=== PATIENT | male | born 1965 | race Caucasian/White ===

== ENCOUNTER 2019-07-03 08:00 | Day surgery (SDC) | payer OTHER, SELFPAY ==
[2019-07-02 11:13] VITALS: BMI 33.0
[2019-07-03 06:38] VITALS: BP 134/97; PULSE 75; RESP 18; TEMP 36; O2SAT 97; BMI 32.5
[2019-07-03] MEDS: LACTATED RINGERS 1,000 ML 150 ML IV CONT (07:00)
--- NOTE | 2019-07-03 07:10 | WPDANESEPPF ---
Anes - Initial Pre Proc Eval Procedure: Operation Date: 07/03/19 08:00 Proposed Procedures p Esophagogastroduodenoscopy - Tc Christianson MD Date/Time: 07/03/19 07:10 Surgeon: Tc Christianson MD Pre Op Diagnosis: dysphagia Patient Data Age: 53 Gender: M Height: 1.91 m Weight: 118 kg Last Vital Signs Temp 36.0 C L 07/03/19 06:38 Pulse 75 07/03/19 06:38 Resp 18 07/03/19 06:38 BP 134/97 H 07/03/19 06:38 Pulse Ox 97 07/03/19 06:38 Allergies Allergy/AdvReac Type Severity Reaction Status Date / Time No Known Allergies Allergy Verified 07/03/19 06:37 Home Medications Medication Instructions Recorded Confirmed Type Multiple Vitamins 1 tab-cap PO DAILY 07/02/19 07/03/19 History bupropion HCl (smoking deter) 150 mg PO EVERY OTHER DAY 07/02/19 07/03/19 History pantoprazole 40 mg PO DAILY 07/02/19 07/03/19 History Patient hx anesthesia problems: none Family hx anesthesia problems: none PMFSH Past Medical History Medical History (Updated 07/03/19 @ 07:11 by Jonh Thompson MD) Chronic GERD Obesity Social History Social History Gender identity (if verbalized by the patient): Male Anes - Eval Final PreProcedure Day of Procedure 07/03/19 07:10 Patient weight: obese Heart: regular rate and rhythm Lungs: clear to auscultation and normal air movement Airway: Mallampati scale Neurological: alert and oriented Last oral intake: >/= 8 hours ASA classification: III Emergent: no Anesthetic plan: proceed Anesthesia type and monitoring: general GIVS Informed Consent: The patient's anesthetic plan and its attendant risks and benefits were discussed with the patient/family/POA. Questions were solicited and answers provided to the satisfaction of the patient/family/POA.
--- NOTE | 2019-07-03 08:10 | P.HP_ITS ---
History of Present Illness History of Present Illness Consent: Risks, benefits, and alternatives have been discussed and questions answered. Patient agrees to proceed with procedure. Chief complaint: dysphagia Narrative: Chidi Mccloud is a 53 year old W male referred for semi emergent gastroscopy for evaluation of increasing solid food dysphagia. Patient with increased heartburn and indigestion. Denies any weight loss. no nausea vomiting or hematemesis. Patient states he had a gastroscopy by another examiner in 2012 and has been on anti reflux medicine since this time. He takes Protonix 40 mg daily symptoms are increasing despite this. Patient is a chronic smoker he did stop just recently. He is concerned about underlying malignancy since the symptoms have not been improving. Patient did have a CT scan of his abdomen which revealed a small hiatal hernia and wall thickening about the GE junction. [facility] Past Medical History Medical History Chronic GERD Obesity Social History Social History Gender identity (if verbalized by the patient): Male Meds Home Medications and Allergies Home Medications Medication Instructions Recorded Confirmed Type Multiple Vitamins 1 tab-cap PO DAILY 07/02/19 07/03/19 History bupropion HCl (smoking deter) 150 mg PO EVERY OTHER DAY 07/02/19 07/03/19 History pantoprazole 40 mg PO DAILY 07/02/19 07/03/19 History Allergies Allergy/AdvReac Type Severity Reaction Status Date / Time No Known Allergies Allergy Verified 07/03/19 06:37 Vital Signs Vital Signs - 24 hr 07/03/19 06:38 Temperature 36.0 C L Pulse Rate 75 Respiratory Rate 18 Blood Pressure 134/97 H Pulse Oximetry 97 Exam Const: Orientation/consciousness: patient oriented x3 Resp: Auscultation: clear to auscultation bilaterally Cardio: Rate: regular rate Rhythm: regular rhythm Heart sounds: no murmurs GI: GI Palp: Yes Soft to palpation, No Tenderness to palpation present (GI), Yes No hepatosplenomegaly present and No Palpable mass present Auscultation: normal bowel sounds Neuro: General: patient oriented x3 and no focal motor deficits Extrem: General: no pedal edema Assessment and Plan Additional Plan Gastroscopy for evaluation of increasing heartburn despite Protonix therapy and abnormal CT scan which revealed thickening of the GE junction.
[2019-07-03 08:38] VITALS: BP 119/82; PULSE 90; RESP 18; O2SAT 99
[2019-07-03 08:48] VITALS: BP 113/90; PULSE 83; RESP 26; O2SAT 99
[2019-07-03 08:58] VITALS: BP 130/98; PULSE 84; RESP 26; O2SAT 99
== END 2019-07-03 09:09 ==
PROVIDERS: PCP Internal Medicine; Visit Provider Internal Medicine Gastroenterology
PROC: 0DJ08ZZ Inspection of Upper Intestinal Tract, Via Natural or Artificial Opening Endoscopic (ICD-10-PCS; CPT 43235; principal; 2019-07-03 08:00)
DX: K22.2 Esophageal obstruction (principal); K44.9 Diaphragmatic hernia without obstruction or gangrene; K21.0 Gastro-esophageal reflux disease with esophagitis; K29.50 Unspecified chronic gastritis without bleeding; E66.9 Obesity, unspecified; Z68.32 Body mass index [BMI] 32.0-32.9, adult
CPT/HCPCS: 43239; 88305; J2704; J7120

== ENCOUNTER 2019-07-08 10:55 | Outpatient (CLI) | payer OTHER, SELFPAY ==
--- NOTE | ~2019-07-08 | XR_ITS ---
EXAMINATION: XR UGIAC wo kub DATE: 07/08/2019 11:37 INDICATION: Hiatal hernia. Dysphagia. TECHNIQUE: The patient drank thick barium, gas-producing crystals, and thin barium. Fluoroscopy of th e esophagus, stomach, and proximal small bowel was performed. Fluoroscopy exposure time was 0.6 minut es. The total number of images was 236. Total dose-area product was 0.6 Gy-cm^2. COMPARISON: None. FINDINGS: There is no mass or stricture of the esophagus. Esophageal motility is normal. There is a m oderate-sized sliding hiatal hernia. The gastroesophageal junction is 5 cm above the diaphragm. There was no gastroesophageal reflux with provocative maneuvers. The stomach and proximal small bowel show normal folding patterns. IMPRESSION: 1. Moderate-sized sliding hiatal hernia. Reviewed, dictated and finalized at location A.
== END 2019-07-08 10:56 | disposition home or self-care (01) ==
PROVIDERS: PCP Internal Medicine; Visit Provider Internal Medicine Gastroenterology
DX: R13.10 Dysphagia, unspecified (principal); K44.9 Diaphragmatic hernia without obstruction or gangrene
CPT/HCPCS: 74246

== ENCOUNTER 2021-08-08 18:15 | Emergency (ER) | payer OTHER, SELFPAY ==
[2021-08-08 18:22] VITALS: BP 149/96; PULSE 95; RESP 16; TEMP 36; O2SAT 99
--- NOTE | 2021-08-08 18:34 | ED.URI ---
HPI - URI/Sore Throat General Chief Complaint: Upper Respiratory Infection Stated Complaint: sore throat, congestion Time Seen by Provider: 08/08/21 18:28 Source: patient and RN notes reviewed Mode of arrival: ambulatory Limitations: no limitations History of Present Illness HPI Narrative: 55-year-old male presents with concern for over 1 week history of cough, worsening, nasal congestion, sore throat, headache, ear fullness. He reports green productive cough. He reports has been taking [id number] medication without relief, and symptoms have been worsening. Reports cough keeps him awake at night MD elicited complaint: cough, sore throat and nasal congestion Related Data Home Medications Medication Instructions Recorded Confirmed pantoprazole 40 mg PO DAILY 07/02/19 08/08/21 apixaban [Eliquis] 2.5 mg PO DAILY 08/08/21 08/08/21 Allergies Allergy/AdvReac Type Severity Reaction Status Date / Time No Known Allergies Allergy Verified 08/08/21 18:25 Review of Systems Review of Systems: CONSTITUTIONAL: Reports malaise. Denies chills, sweats, or fever. EYES: Denies visual changes, redness, or discharge. ENT: Reports rhinorrhea, congestion, sinus pain, otalgia and sore throat. CARDIOVASCULAR: Denies chest pain, palpitations, or edema. RESPIRATORY: Reports cough. Denies dyspnea. GASTROINTESTINAL: Denies abdominal pain, nausea, vomiting, diarrhea SKIN: Denies rash or itching. MUSCULOSKELETAL: Denies myalgia. NEUROLOGIC: Denies headache. All systems reviewed & are unremarkable except as noted in HPI and below PMFSH Past Medical History Medical History (Updated 08/08/21 @ 18:37 by Monica Hathaway NP) Chronic GERD Obesity Social History Social History Gender identity (if verbalized by the patient): Male Comments At time of signature, agree with nursing past medical, surgical, social and family history. There is no relevant family history pertinent to the presenting complaint Exam Narrative: GENERAL: Nontoxic-appearing and in no acute distress. HEAD: Normocephalic EYES: PERRLA, conjunctivae clear ENT: Nares clear, turbinates edematous and erythematous, sinus tenderness. Mucous membranes moist. TM pearly iglesias with dull light reflex bilaterally; no tragal tenderness. Oropharynx erythematous without lesions. Tonsils not enlarged and without exudate, no drooling, no hoarseness, no trismus, uvula midline. NECK: Supple. No lymphadenopathy CHEST: Clear to auscultation, breath sounds equal. No wheezing, rhonchi, rales, or stridor. No respiratory distress, speaks in full sentences. HEART: Regular rate and rhythm. No murmur heard. SKIN: Warm, dry, no rash. NEURO: Alert and oriented x3. PSYCH: Normal mood and affect Course Course Emergency Course: Patient is aware of diagnosis, understands and agrees to treatment plan. Anticipatory guidance given. Patient agrees to follow-up as directed and is aware of reasons to seek care at the emergency department. Portions of this record may have been created with voice recognition software Level of Care: Express Care Visit Vital Signs Vital signs: Vital Signs Temperature 96.8 F L 08/08/21 18:22 Pulse Rate 95 08/08/21 18:22 Respiratory Rate 16 08/08/21 18:22 Blood Pressure 149/96 H 08/08/21 18:22 Pulse Oximetry 99 08/08/21 18:22 Temperature 96.8 F L 08/08/21 18:22 Pulse Rate 95 08/08/21 18:22 Respiratory Rate 16 08/08/21 18:22 Blood Pressure 149/96 H 08/08/21 18:22 Pulse Oximetry 99 08/08/21 18:22 Reviewed. MDM - URI/Sore Throat MDM Narrative Medical decision making narrative: Differential diagnosis considered: Anderson virus, strep pharyngitis, allergic rhinitis, upper respiratory tract infection, sinusitis, rhinosinusitis, nasopharyngitis. viral pharyngitis, otitis media, otitis externa, pneumonia, bronchitis, viral cough syndrome, viral syndrome, and influenza. Exam findings show
== END 2021-08-08 18:43 | disposition home or self-care (01) ==
PROVIDERS: Emergency Provider Nurse Practitioner; PCP Internal Medicine
DX: J06.9 Acute upper respiratory infection, unspecified (principal)
CPT/HCPCS: 99213; G0463